=== PATIENT | male | born 1960 | race Caucasian/White ===

== ENCOUNTER 2020-10-01 10:39 | Day surgery (SDC) | payer MEDICARE, MEDICAID ==
[~2020-10-01] VITALS: Ht 182.9 cm; Wt 119.7 kg
[2020-10-01] VITALS (10 sets, daily range): BP systolic 134–164; BP diastolic 74–94
[2020-10-01] MEDS ORDERED: diphenhydrAMINE 25mg capsule PO PRN (11:15)
[2020-10-01] MEDS ORDERED: LORazepam 0.5 MG tablet PO PRN (11:15)
[2020-10-01] MEDS ORDERED: normal saline 1,000 ML IV SCH (11:15)
[2020-10-01] MEDS ORDERED: LURA60TA PO (11:27)
[2020-10-01] MEDS ORDERED: ISOS120T13 PO (11:27)
[2020-10-01] MEDS ORDERED: ALBU8HFA (11:27)
[2020-10-01] MEDS ORDERED: OXYC36CA PO (11:27)
[2020-10-01] MEDS ORDERED: OXYC9CAP PO (11:27)
[2020-10-01] MEDS ORDERED: OXYC10TA47 PO (11:27)
[2020-10-01] MEDS ORDERED: LOSA100T57 PO (11:27)
[2020-10-01] MEDS ORDERED: EXEN2PEN (11:27)
[2020-10-01] MEDS ORDERED: TEMA30CA PO (11:27)
[2020-10-01] MEDS ORDERED: BUSP-29 PO (11:27)
[2020-10-01] MEDS ORDERED: METF-438 PO (11:27)
[2020-10-01] MEDS ORDERED: PRAZ1CAP5 PO (11:27)
[2020-10-01] MEDS ORDERED: METO-395 PO (11:27)
[2020-10-01] MEDS ORDERED: PANT40TA54 PO (11:27)
[2020-10-01] MEDS ORDERED: ATOR80TA PO (11:33)
[2020-10-01] MEDS ORDERED: NITR0.4T48 SL (11:33)
[2020-10-01] MEDS ORDERED: OMEG1CAP PO (11:33)
[2020-10-01] MEDS ORDERED: ASPI-1265 PO (11:33)
[2020-10-01] MEDS ORDERED: GABA600T13 PO (11:33)
[2020-10-01] MEDS ORDERED: MOME17SP BOTHNARES (11:33)
[2020-10-01] MEDS ORDERED: DESV50TA20 PO (11:33)
[2020-10-01] MEDS ORDERED: heparin 1,000unit/ml 10ml vial 10 ML ONE (14:39)
[2020-10-01] MEDS ORDERED: iohexol 350MG/ML 100ml bottle IV ONE (14:40)
[2020-10-01] MEDS ORDERED: iohexol 350 MG/ML 50ML vial IV ONE (14:41)
[2020-10-01] MEDS ORDERED: aspirin 325mg tablet ONE (15:08)
[2020-10-01] MEDS ORDERED: ticagrelor 90mg tablet ONE (15:08)
[2020-10-01] MEDS ORDERED: OXAZEpam 15mg capsule PO PRN (15:45)
[2020-10-01] MEDS ORDERED: ondansetron/PF 4mg/2ml inj IV PRN (15:45)
[2020-10-01] MEDS ORDERED: HYDROcodone/acetaminophen 10/325mg tab PO PRN (15:45)
[2020-10-01] MEDS ORDERED: HYDROcodone/acetaminophen 5mg/325mg tablet PO PRN (15:45)
[2020-10-01] MEDS ORDERED: proCHLORperazine 10 MG/2 ml inj IV PRN (15:45)
== END 2020-10-01 19:25 | disposition home or self-care (01) ==
LOC: SSTAY O 10:39
PROVIDERS: ATTEND Internal Medicine Interventional Cardiology
DX: I25.810 Atherosclerosis of coronary artery bypass graft(s) without angina pectoris (principal); I11.0 Hypertensive heart disease with heart failure; I50.9 Heart failure, unspecified; I42.9 Cardiomyopathy, unspecified; G47.33 Obstructive sleep apnea (adult) (pediatric); I25.2 Old myocardial infarction; K21.9 Gastro-esophageal reflux disease without esophagitis; E78.49 Other hyperlipidemia; E11.40 Type 2 diabetes mellitus with diabetic neuropathy, unspecified; F17.210 Nicotine dependence, cigarettes, uncomplicated; I95.1 Orthostatic hypotension; E11.51 Type 2 diabetes mellitus with diabetic peripheral angiopathy without gangrene; I70.203 Unspecified atherosclerosis of native arteries of extremities, bilateral legs; Z79.84 Long term (current) use of oral hypoglycemic drugs; Z79.82 Long term (current) use of aspirin; Z79.899 Other long term (current) drug therapy
CPT/HCPCS: 82948; 93005; 93459; 93567; 99152; 99153; C1751; C1760; C1769; C1874; C1894; C9604; J1644; J7030; Q0163; Q9967; A4620